=== PATIENT | female | born 1945 | race Caucasian/White ===

== ENCOUNTER 2021-01-04 13:29 | Day surgery (SDC) | payer MEDICARE, OTHER ==
[~2021-01-04] VITALS: Ht 157.5 cm; Wt 67.3 kg
[~2021-01-04 13:29] MED LIST: ATIVAN0.5 MG PO; FAMO20 PO; PANT40 PO
== END 2021-01-04 15:57 | disposition home or self-care (01) ==
LOC: ORSCSDS 13:29
PROVIDERS: Internal Medicine Gastroenterology
PROC: 0D758ZZ Dilation of Esophagus, Via Natural or Artificial Opening Endoscopic (ICD-10-PCS; principal; 2021-01-04 14:45)
PROC: 0DB58ZX Excision of Esophagus, Via Natural or Artificial Opening Endoscopic, Diagnostic (ICD-10-PCS; principal; 2021-01-04 14:45)
DX: R13.10 Dysphagia, unspecified (principal); K21.9 Gastro-esophageal reflux disease without esophagitis; Z87.891 Personal history of nicotine dependence; K44.9 Diaphragmatic hernia without obstruction or gangrene
CPT/HCPCS: 88305; J2250; J2704; J7120